=== PATIENT | male | born 1965 | race Caucasian/White ===

== ENCOUNTER → 2019-03-12 | Outpatient (CLI) | payer OTHER ==
--- NOTE | 2019-03-12 17:34 | Diagnostic Imaging Report ---
INDICATION: Lump post injury right lower chest. TECHNIQUE: Multiple real time cardozo scale sonographic images were obtained of the right lower chest wall. CORRELATION STUDY: None. FINDINGS: Imaging at the area of palpable concern demonstrates no definitive mass lesion. No definitive soft tissue ultrasound abnormality. IMPRESSION: 1.Unremarkable focused soft tissue ultrasound examination of the right chest wall. Dictated on workstation # [id number]
== END ==
LOC: RAD 08:56
PROVIDERS: ATTEND Nurse Practitioner Community Health
DX: R22.2 Localized swelling, mass and lump, trunk (principal)
CPT/HCPCS: 76999

== ENCOUNTER → 2019-04-17 | Outpatient (CLI) | payer SELFPAY | LOC: RAD 10:14 | PROVIDERS: ATTEND Nurse Practitioner | DX: M75.111 Incomplete rotator cuff tear or rupture of right shoulder, not specified as traumatic (principal); Z53.8 Procedure and treatment not carried out for other reasons ==